=== PATIENT | female | born 1995 | race Caucasian/White ===

== ENCOUNTER 2022-09-09 16:06 | Outpatient (CLI) | payer MEDICAID ==
[2022-09-09 22:00] LABS: ALBUMIN 4.2 g/dL (3.2-5.5); ALBUMIN/GLOBULIN RATIO 1.2 (1.0-2.2); BILIRUBIN,TOTAL 0.3 mg/dL (0.2-1.0); CALCIUM 9.8 mg/dL (8.5-10.3); CREATININE 0.7 mg/dL (0.6-1.3); POTASSIUM 3.5 mmol/L (3.5-4.5); TOTAL PROTEIN 7.6 g/dL (6.4-8.9)
[2022-09-11 04:30] LABS: HBsAG SCREEN Negative (Negative); HCV AB Non Reactive (Non Reactive); HEPATITIS B CORE IGM AB Negative (Negative)
[2022-09-11 05:34] LABS: ALPHA-1-ANTITRYPSIN SERUM 148 mg/dL (100-188)
[2022-09-12 11:10] LABS: ACTIN (SMOOTH MUSCLE) ANTIBODY 5 Units (0-19); MITOCHONDRIAL (M2) ANTIBODY <20.0 Units (0.0-20.0)
[2022-09-13 16:08] LABS: ANTINUCLEAR ANTIBODIES IFA Negative (.)
[2022-09-14 09:08] LABS: LIVER-KIDNEY MICROSOMAL AB 0.7 Units (0.0-20.0)
== END 2022-09-09 16:07 | disposition home or self-care (01) ==
LOC: LAB.N 16:06
PROVIDERS: ATTEND Physician Assistant
DX: R74.8 Abnormal levels of other serum enzymes (principal); K76.0 Fatty (change of) liver, not elsewhere classified
CPT/HCPCS: 36415; 80053; 80074; 81599; 82103; 82390; 82784; 86015; 86038; 86258; 86364; 86376; 86381